=== PATIENT | female | born 1995 | race Caucasian/White ===

== ENCOUNTER 2022-10-01 19:34 | Inpatient (IN) | payer BC, MEDICAID ==
[2022-10-01 20:07] VITALS: BMI 39.4
[2022-10-01] MEDS ORDERED: Carboprost 250 MCG/ML AMP IM PRN (21:45)
[2022-10-01] MEDS ORDERED: Diphenoxylate HCl/Atropine Tablet PO PRN ×2 (21:45)
[2022-10-01] MEDS ORDERED: Ibuprofen 800 MG TAB PO PRN (21:45)
[2022-10-01] MEDS ORDERED: NS w/ Oxytocin 30 units 500 ML IVPB SCH (21:45)
[2022-10-01] MEDS ORDERED: NS w/ Oxytocin 30 units 500 ML IV SCH (21:45)
[2022-10-01] MEDS ORDERED: HYDROcodone/Acetaminophen 5/325 mg Tablet PO PRN ×2 (21:45)
[2022-10-01] MEDS ORDERED: Lidocaine 1% (PF) 30 ML VIAL SC PRN (21:45)
[2022-10-01] MEDS ORDERED: Misoprostol 200 MCG TAB RC PRN (21:45)
[2022-10-01] MEDS ORDERED: Penicillin G Potassium 5 MILL.UNITS in Sodium Chloride 0.9% 100 ML IVPB SCH (21:45)
[2022-10-01] MEDS ORDERED: Methylergonovine 0.2 MG/ML VIAL IM PRN (21:45)
[2022-10-01] MEDS ORDERED: fentaNYL 50 mcg/mL 1 mL Vial SLOW IVP PRN (21:47)
[2022-10-01] MEDS ORDERED: Tranexamic Acid 1,000 MG/10 ML VIAL IVP PRN (21:48)
[2022-10-01] MEDS ORDERED: Penicillin G Potassium 5 MILL.UNITS VIAL ONE (21:52)
[2022-10-01] MEDS ORDERED: Lactated Ringer's 1,000 ML IV SCH (22:00)
[2022-10-01] MEDS ORDERED: Acetaminophen 500 MG TAB PO PRN (22:00)
[2022-10-01] MEDS ORDERED: hydrALAZINE 20 MG/ML VIAL SLOW IVP PRN (22:00)
[2022-10-01] MEDS ORDERED: Ondansetron PF 4 MG/2 ML Vial IVP PRN (22:00)
[2022-10-01] MEDS ORDERED: Promethazine HCl 25 MG/ML VIAL IM PRN (22:00)
[2022-10-01] MEDS ORDERED: fentaNYL/Ropivacaine Epidural 100 ML ONE (22:01)
[2022-10-01 22:26] LABS: Hemoglobin 13.3 g/dL (12.0-15.5); Mean Corpuscular HGB CONC 34.1 g/dL (32.0-36.0); Mean Corpuscular Hemoglobin 28.2 pg (27.0-33.0); Mean Corpuscular Volume 82.6 fl (81.6-98.3); Mean Platelet Volume 10.6 fl (7.4-10.4); Platelet Count 221 10x3/uL (150-450); RBC Distribution Width 13.6 % (11.5-14.5); Red Blood Cell (RBC) Count 4.72 10x6/uL (3.90-5.03); White Blood Cell (WBC) Count 14.9 10x3/uL (3.5-10.5)
[2022-10-01 22:34] LABS: HBSAg Index 0.14 S/CO (0-0.99); Hep B Surf Ag - L&D Non-Reactive S/CO (NonReactive); Syphilis Antibody Nonreactive (Nonreactive); Syphilis Antibody Index 0.03 S/CO (<1.00 Non-Reactive)
[2022-10-01] MEDS ORDERED: CEFAZOLIN 2 GM VIAL ONE (23:28)
[2022-10-01] MEDS ORDERED: Chloroprocaine 3% PF 20 ML VIAL ONE (23:36)
[2022-10-01] MEDS ORDERED: Midazolam HCl 2 mg/2 ml Vial ONE (23:36)
[2022-10-01] MEDS ORDERED: KETAMINE 100 MG/ML (5ML VIAL) ONE (23:36)
[2022-10-01] MEDS ORDERED: CEFAZOLIN 1 GM VIAL ONE (23:36)
[2022-10-01] MEDS ORDERED: Oxytocin 10 UNITS/ML VIAL ONE (23:36)
[2022-10-01] MEDS ORDERED: Morphine PF 10 MG/10 ML VIAL ONE (23:43)
[2022-10-01 23:45] LABS: pH (Cord, venous) 6.956 (7.250-7.350)
[2022-10-01] MEDS ORDERED: Lidocaine 1% PF 5 ML VIAL ONE (23:49)
[2022-10-01] MEDS ORDERED: Ondansetron PF 4 MG/2 ML Vial ONE (23:49)
[2022-10-01] MEDS ORDERED: Lidocaine 1% PF 10 ML AMP ONE (23:50)
[2022-10-01] MEDS ORDERED: Bupivacaine PF 0.5% 30 ML VIAL ONE (23:50)
[2022-10-01] MEDS ORDERED: Lidocaine 2% MPF 10 ML AMP (For Epidural Use) ONE (23:51)
[2022-10-01] MEDS ORDERED: PHENYLEPHRINE-NS 100 MCG/ML 10 ML SYRINGE ONE (23:56)
[2022-10-01] MEDS ORDERED: Ketorolac Tromethamine 30 MG/ML VIAL ONE (23:59)
[2022-10-02] MEDS ORDERED: Penicillin G 2.5 MILL.units 50 ML IVPB SCH (01:00)
[2022-10-02] MEDS ORDERED: fentaNYL 50 mcg/mL 1 mL Vial SLOW IVP SCH (02:30)
[2022-10-02] MEDS ORDERED: Gentamicin Sulfate 370 MG in Sodium Chloride 0.9% 100 ML IVPB SCH (03:00)
[2022-10-02] MEDS ORDERED: Clindamycin/D5W 900 mg/50 ml Premix Bag ONE (03:39)
[2022-10-02] MEDS: Clindamycin/D5W 900 MG in Premix Bag 1 BAG IVPB SCH ×4 (03:50→21:22)
[2022-10-02] MEDS ORDERED: Vancomycin 1.5 GRAM/300 ML BAG 1.5 GM in Premix Bag 1 BAG IVPB SCH ×2 (04:00→05:00)
[2022-10-02] MEDS ORDERED: Ondansetron PF 4 MG/2 ML Vial IVP PRN (04:37)
[2022-10-02] MEDS ORDERED: Simethicone Chewable 80 MG TAB PO PRN (04:37)
[2022-10-02] MEDS ORDERED: HYDROcodone/Acetaminophen 5/325 mg Tablet PO PRN (04:37)
[2022-10-02] MEDS ORDERED: diphenhydrAMINE 25 MG CAP PO PRN (04:37)
[2022-10-02] MEDS ORDERED: Bisacodyl 10 MG SUPP PR PRN (04:37)
[2022-10-02] MEDS ORDERED: Lanolin Ointment 7 GM TUBE TOP PRN (04:37)
[2022-10-02] MEDS ORDERED: Acetaminophen 325 MG TAB PO PRN (04:37)
[2022-10-02] MEDS ORDERED: Boostrix 0.5 ML (Tdap) VIAL (>/=7 yrs of age) IM ONE (04:37)
[2022-10-02] MEDS ORDERED: Promethazine HCl 25 MG/ML VIAL IM PRN (04:37)
[2022-10-02] MEDS ORDERED: hydrALAZINE 20 MG/ML VIAL SLOW IVP PRN (04:37)
[2022-10-02] MEDS: Ketorolac Tromethamine 30 MG/ML VIAL IVP PRN ×2 (05:25→14:10)
[2022-10-02] MEDS ORDERED: Ibuprofen 800 MG TAB PO SCH (06:00)
[2022-10-02] MEDS: Ferrous Sulfate 325 MG TAB PO SCH ×2 (07:24→21:22)
[2022-10-02] MEDS: Prenatal Vitamin 1 TAB PO SCH (09:55)
[2022-10-02] MEDS: Docusate 100 MG CAP PO SCH ×2 (09:55→21:22)
[2022-10-02] MEDS: HYDROcodone/Acetaminophen 5/325 mg Tablet PO PRN ×2 (12:46→19:50)
[2022-10-02] MEDS ORDERED: Tranexamic Acid 1,000 MG/10 ML VIAL IVP SCH (14:00)
[2022-10-03] MEDS: HYDROcodone/Acetaminophen 5/325 mg Tablet PO PRN ×4 (00:10→13:32)
[2022-10-03 04:39] LABS: Hemoglobin 10.3 g/dL (12.0-15.5); Mean Corpuscular HGB CONC 33.4 g/dL (32.0-36.0); Mean Corpuscular Hemoglobin 29.2 pg (27.0-33.0); Mean Corpuscular Volume 87.3 fl (81.6-98.3); Mean Platelet Volume 10.8 fl (7.4-10.4); Platelet Count 172 10x3/uL (150-450); RBC Distribution Width 13.9 % (11.5-14.5); Red Blood Cell (RBC) Count 3.53 10x6/uL (3.90-5.03); White Blood Cell (WBC) Count 11.2 10x3/uL (3.5-10.5)
[2022-10-03] MEDS: Ferrous Sulfate 325 MG TAB PO SCH (08:36)
[2022-10-03] MEDS: Prenatal Vitamin 1 TAB PO SCH (08:39)
[2022-10-03] MEDS: Docusate 100 MG CAP PO SCH (08:39)
[2022-10-03 11:23] VITALS: BP 121/68; TEMP 97.7
[2022-10-07] MEDS ORDERED: Ibuprofen 800 MG TAB PO SCH (14:00)
== END 2022-10-03 15:30 | disposition home or self-care (01) | DRG 788 ==
LOC: CSHLD/OP 19:34 → CSHLD 21:50 → CSHPP 10-02 02:45
PROVIDERS: ADMIT Obstetrics & Gynecology; ATTEND Obstetrics & Gynecology
PROC: 10D00Z1 Extraction of Products of Conception, Low, Open Approach (ICD-10-PCS; principal; 2022-10-01)
PROC: 10H07YZ Insertion of Other Device into Products of Conception, Via Natural or Artificial Opening (ICD-10-PCS; 2022-10-01)
PROC: 4A133R1 Monitoring of Arterial Saturation, Peripheral, Percutaneous Approach (ICD-10-PCS; 2022-10-01)
PROC: 3E03329 Introduction of Other Anti-infective into Peripheral Vein, Percutaneous Approach (ICD-10-PCS; 2022-10-01)
PROC: 3E033VJ Introduction of Other Hormone into Peripheral Vein, Percutaneous Approach (ICD-10-PCS; 2022-10-01)
DX: O34.211 Maternal care for low transverse scar from previous cesarean delivery (principal); O99.824 Streptococcus B carrier state complicating childbirth; O36.8330 Maternal care for abnormalities of the fetal heart rate or rhythm, third trimester, not applicable or unspecified; O48.0 Post-term pregnancy; O67.9 Intrapartum hemorrhage, unspecified; O76 Abnormality in fetal heart rate and rhythm complicating labor and delivery; Z3A.40 40 weeks gestation of pregnancy; Z37.0 Single live birth
CPT/HCPCS: 36415; 51702; 74019; 82565; 82805; 85027; 86780; 86850; 86900; 86901; 87340; 99285; J0690; J1885; J2001; J2250; J2274; J2401; J2405; J2590; J3370; J3490; S0020

== ENCOUNTER 2024-01-09 10:38 | Inpatient (IN) | payer BC, MEDICAID ==
[2024-01-09 11:09] VITALS: BMI 37.9
[2024-01-09] MEDS ORDERED: hydrALAZINE 20 MG/ML VIAL SLOW IVP PRN ×2 (13:05→16:31)
[2024-01-09] MEDS ORDERED: Bicitra 30 ML UDCUP PO PRN (13:05)
[2024-01-09] MEDS ORDERED: Promethazine HCl 25 MG/ML VIAL IM PRN ×2 (13:05→16:10)
[2024-01-09] MEDS ORDERED: Ondansetron PF 4 MG/2 ML Vial IVP PRN ×2 (13:05→16:10)
[2024-01-09] MEDS ORDERED: Lactated Ringer's 1,000 ML IV SCH (13:15)
[2024-01-09] MEDS ORDERED: Oxytocin 30 units/NS 500 ML 500 ML IV SCH (13:15)
[2024-01-09 14:21] LABS: Hematocrit 35.8 % (34.9-44.5); Hemoglobin 11.8 g/dL (12.0-15.5); Mean Corpuscular Hemoglobin 28.2 pg (27.0-33.0); Mean Corpuscular Volume 85.4 fL (81.6-98.3); Platelet Count 189 10x3/uL (150-450); RBC Distribution Width 13.5 % (11.5-14.5); Red Blood Cell (RBC) Count 4.19 10x6/uL (3.90-5.03); White Blood Cell (WBC) Count 11.1 10x3/uL (3.5-10.5)
[2024-01-09 14:57] LABS: HBsAg Index 0.21 S/CO (0-0.99); Hep B Surf Ag - L&D Non-Reactive S/CO (NonReactive)
[2024-01-09 14:59] LABS: Syphilis Antibody Nonreactive (Nonreactive); Syphilis Antibody Index 0.04 S/CO (<1.00 Non-Reactive)
[2024-01-09] MEDS: Famotidine/PF 20 mg/2ml Vial SLOW IVP PRN (15:18)
[2024-01-09] MEDS: CEFAZOLIN 2 GM in Sodium Chloride 0.9% 100 ML IVPB SCH (15:19)
[2024-01-09 15:35] LABS: HIV (1/2) Antibody/Antigen Non-Reactive (NonReactive); HIV 1/2 INDEX 0.09 S/CO (<1.00)
[2024-01-09] MEDS ORDERED: diphenhydrAMINE 50 MG/ML VIAL IVP PRN (16:10)
[2024-01-09] MEDS ORDERED: Naloxone HCl 0.4 mg/ml Vial IVP PRN ×2 (16:10)
[2024-01-09] MEDS ORDERED: Meperidine HCl/PF 25 MG (1 mL) VIAL SLOW IVP PRN (16:10)
[2024-01-09] MEDS ORDERED: Moisturizing Cream (Eucerin) 113 GM JAR TOP PRN (16:10)
[2024-01-09] MEDS ORDERED: Naloxone HCl 0.4 mg/ml Vial IV PRN (16:10)
[2024-01-09 16:13] LABS: Analyzer IN Cardio CS NICU; Critical Notified Whom: RICAL; RapidComm Collect By CBN
[2024-01-09 16:14] LABS: Analyzer IN Cardio CS NICU; Critical Notified Whom: RICAL; RapidComm Collect By CBN; pH (Cord, venous) 7.388 (7.250-7.350)
[2024-01-09] MEDS ORDERED: Ketorolac Tromethamine 30 MG (1 mL) VIAL IVP SCH (16:15)
[2024-01-09] MEDS ORDERED: Communication Order-Pharmacy FS SCH (16:15)
[2024-01-09] MEDS ORDERED: diphenhydrAMINE 25 MG CAP PO PRN (16:31)
[2024-01-09] MEDS ORDERED: Bisacodyl 10 MG SUPP PR PRN (16:31)
[2024-01-09] MEDS ORDERED: Lanolin Ointment 7 GM TUBE TOP PRN (16:31)
[2024-01-09] MEDS: fentaNYL 50 mcg/mL 1 mL Vial SLOW IVP PRN (19:54)
[2024-01-09] MEDS: PHENYLEPHRINE-NS 100 MCG/ML 10 ML SYRINGE ONE (21:52)
[2024-01-09] MEDS: Morphine PF 10 MG/10 ML VIAL ONE (21:52)
[2024-01-09] MEDS: Oxytocin 10 UNITS/ML VIAL ONE (21:52)
[2024-01-09] MEDS: Dexamethasone 10 MG/ML VIAL ONE (21:52)
[2024-01-09] MEDS: Ondansetron PF 4 MG/2 ML Vial ONE (21:53)
[2024-01-09] MEDS: Ferrous Sulfate 325 MG TAB PO SCH (21:54)
[2024-01-09] MEDS: Ketorolac Tromethamine 30 MG (1 mL) VIAL IVP PRN (22:18)
[2024-01-09] MEDS: Simethicone Chewable 80 MG TAB PO PRN (22:19)
[2024-01-09] MEDS: Docusate 100 MG CAP PO SCH (22:19)
[2024-01-09] MEDS: Ondansetron PF 4 MG/2 ML Vial IVP PRN (22:27)
[2024-01-10 04:02] LABS: Hematocrit 30.1 % (34.9-44.5); Hemoglobin 10.2 g/dL (12.0-15.5); Mean Corpuscular HGB CONC 33.9 g/dL (32.0-36.0); Mean Corpuscular Hemoglobin 28.8 pg (27.0-33.0); Mean Platelet Volume 10.9 fL (7.4-10.4); Platelet Count 203 10x3/uL (150-450); RBC Distribution Width 13.2 % (11.5-14.5); Red Blood Cell (RBC) Count 3.54 10x6/uL (3.90-5.03)
[2024-01-10] MEDS: Boostrix 0.5 ML (Tdap) VIAL (>/=7 yrs of age) IM ONE (04:41)
[2024-01-10] MEDS: HYDROcodone/Acetaminophen 5/325 mg Tablet PO PRN ×2 (10:46→21:07)
[2024-01-10] MEDS: Ibuprofen 800 MG TAB PO SCH (21:07)
[2024-01-10] MEDS: Prenatal Vitamin 1 TAB PO SCH (22:48)
[2024-01-11] MEDS: Prenatal Vitamin 1 TAB PO SCH (07:57)
[2024-01-11 11:33] VITALS: BP 110/62; TEMP 98.5
== END 2024-01-11 17:40 | disposition home or self-care (01) | DRG 788 ==
LOC: CSHLD/OP 10:38 → CSHLD 13:14 → CSHPP 20:30
PROVIDERS: ADMIT Obstetrics & Gynecology; ATTEND Obstetrics & Gynecology
PROC: 10D00Z1 Extraction of Products of Conception, Low, Open Approach (ICD-10-PCS; principal; 2024-01-09)
PROC: 3E0234Z Introduction of Serum, Toxoid and Vaccine into Muscle, Percutaneous Approach (ICD-10-PCS; 2024-01-09)
DX: O76 Abnormality in fetal heart rate and rhythm complicating labor and delivery (principal); Z3A.37 37 weeks gestation of pregnancy; Z37.0 Single live birth; O34.211 Maternal care for low transverse scar from previous cesarean delivery; O26.893 Other specified pregnancy related conditions, third trimester; Z67.41 Type O blood, Rh negative; Z23 Encounter for immunization
CPT/HCPCS: 36415; 51702; 76819; 82805; 85027; 86780; 86850; 86900; 86901; 87340; 87389; 88307; 99285; J1100; J1885; J2274; J2405; J2590; J3010; J3490

== ENCOUNTER 2024-02-25 11:41 | Emergency (ER) | payer BC, MEDICAID ==
[2024-02-25] MEDS ORDERED: hydrALAZINE 20 MG/ML VIAL ONE (12:34)
[2024-02-25 13:01] LABS: #Basophils 0.03 10x3/uL (0.0-0.2); #Eosinophils 0.07 10x3/uL (0.0-0.5); #Neutrophils 3.73 10x3/uL (1.5-8.4); %Basophils 0.4 % (0.0-2.0); %Lymphocytes 39.3 % (18.0-47.0); %Monocytes 5.7 % (0.0-10.0); %Neutrophils 53.3 % (40.0-75.0); Hematocrit 37.1 % (34.9-44.5); Hemoglobin 12.3 g/dL (12.0-15.5); Mean Corpuscular HGB CONC 33.2 g/dL (32.0-36.0); Mean Corpuscular Hemoglobin 27.5 pg (27.0-33.0); Mean Platelet Volume 9.8 fL (7.4-10.4); Platelet Count 300 10x3/uL (150-450); Red Blood Cell (RBC) Count 4.47 10x6/uL (3.90-5.03)
[2024-02-25 13:29] LABS: ALT (SGPT) 25 U/L (8-55); AST (SGOT) 21 U/L (5-34); Albumin 4.2 g/dL (3.5-5.0); Alkaline Phosphatase 66 U/L (40-110); Anion Gap 16 mmol/L (10-20); BUN (Urea Nitrogen) 9 mg/dL (7.0-18.7); Calc. Creatinine Clearance 0 mL/min (70-130); Calcium 9.6 mg/dL (7.8-10.44); Carbon Dioxide 24 mmol/L (22-29); Chloride 103 mmol/L (98-107); Estimated GFR 98; Glucose 91 mg/dL (70-105); Magnesium 1.7 mg/dL (1.6-2.6); Potassium 3.7 mmol/L (3.5-5.1); Protein, Total 7.2 g/dL (6.0-8.3); Sodium 139 mmol/L (136-145)
[2024-02-25 13:33] LABS: Troponin I Less than 0.010 ng/mL (< 0.028)
[2024-02-25 14:10] LABS: Bilirubin Neg (Negative); Blood, Urine Negative (Negative); Clarity Clear (Clear); Glucose, Urine (Dipstick) Normal (Negative); Ketone, Urine Negative (Negative); Leukocyte Negative (Negative); Nitrite Negative (Negative); Protein, Urine (Dipstick) Negative (Neg-Trace); Urobilinogen Normal mg/dL (Less than 2)
[2024-02-25 14:22] LABS: Pregnancy Test - Urine (BHCG) Negative (Negative); Pregu Control Background? CLEAR/WHITE (CLR/WHITE); Pregu Control Bar Appear? YES (CONTROL BAR)
[2024-02-25 15:32] LABS: Bacteria/HPF None Seen HPF (None Seen); CAUTI Indications for Culture Dysuria,urgency,freq; RBC/HPF None Seen HPF (0-3); Squamous Epithelial 0-3 HPF (0-3); Urine Culture Reflex No No; WBC/HPF None Seen HPF (0-3)
[2024-02-25 20:37] LABS: Uric Acid 9.5 mg/dL (2.6-6.0)
== END 2024-02-25 15:15 | disposition home or self-care (01) ==
LOC: CSHERS 11:41
DX: I10 Essential (primary) hypertension (principal); Z87.891 Personal history of nicotine dependence
CPT/HCPCS: 71045; 80053; 81001; 81025; 83615; 83735; 84484; 84550; 85025; 93005; 96374; J0360

== ENCOUNTER 2025-02-28 18:00 | Emergency (ER) | payer BC, MEDICAID ==
[2025-02-28] MEDS ORDERED: HYDROcodone/Acetaminophen 5/325 mg Tablet ONE (20:07)
== END 2025-02-28 21:15 | disposition home or self-care (01) ==
LOC: CSHERS 18:00
DX: S20.20XA Contusion of thorax, unspecified, initial encounter (principal); I10 Essential (primary) hypertension; F17.290 Nicotine dependence, other tobacco product, uncomplicated; W18.39XA Other fall on same level, initial encounter; Y93.89 Activity, other specified; Z79.899 Other long term (current) drug therapy
CPT/HCPCS: 71045; 93005